=== PATIENT | female | born 2000 | race Caucasian/White ===

== ENCOUNTER 2021-10-12 16:12 | Emergency (ER) | payer OTHER, SELFPAY ==
[2021-10-12 16:24] VITALS: BP 142/70; PULSE 107; RESP 19; TEMP 36.4; O2SAT 100
--- NOTE | 2021-10-12 17:28 | ECG_ITS ---
Measurements Intervals [place] Rate: 88 P: -28 [place]: 146 QRS: 43 QRSD: 97 T: -4 QT: 362 QTc: 438 Interpretive Statements SINUS RHYTHM POSSIBLE RIGHT VENTRICULAR CONDUCTION DELAY [RSR (QR) IN V1/V2] NONSPECIFIC T-WAVE ABNORMALITY ABNORMAL ECG NO PREVIOUS ECG AVAILABLE FOR COMPARISON Electronically Signed On 10-13-2021 9:22:42 CDT by Narendra Lyon M.D.
--- NOTE | 2021-10-12 17:29 | ED.GENADULT ---
HPI - General Adult General Chief complaint: Anxiety Stated complaint: anxiety Time Seen by Provider: 10/12/21 17:17 History of Present Illness HPI narrative: 20-year-old female presents the emergency room with complaints of anxiety. Patient states that she was vaping excessively about an hour and a half prior to arrival. Reports after she vapes, she ran up the stairs. This caused her to have a cramp in her right side, which led her to believe that she was having a heart attack. Patient currently is complaining of chest discomfort and shortness of breath. Patient states this is similar to her past anxiety attacks. Related Data Home Medications Medication Instructions Recorded Confirmed norethindrone-e.estradiol-iron tablet 07/29/19 [08/16 (28)] Allergies Allergy/AdvReac Type Severity Reaction Status Date / Time No Known Allergies Allergy Verified 10/12/21 17:18 Review of Systems Review of Systems: CONSTITUTIONAL: Denies fever, chills, or sweats. EYES: Denies visual changes, redness, or discharge. ENT: Denies rhinorrhea, congestion, sore throat, or otalgia. CARDIOVASCULAR: Reports chest discomfort and palpitations. RESPIRATORY: Reports shortness of breath. GASTROINTESTINAL: Denies abdominal pain, nausea, vomiting, or diarrhea. GENITOURINARY: Denies dysuria or hematuria. SKIN: Denies rash or itching. MUSCULOSKELETAL: Denies back pain, joint pain, or myalgia. NEUROLOGIC: Denies headache, numbness, dizziness, or weakness. PSYCHIATRIC: Reports anxiety. [facility] Past Medical History Medical History (Updated 10/12/21 @ 18:35 by Narendra Kelley, MANUELA) Anxiety Exam Narrative: GENERAL: Well-appearing, well-nourished, and in no acute distress. HEAD: Normocephalic, atraumatic. EYES: PERRLA and EOMI. ENT: Nares clear, no rhinorrhea or epistaxis. Mucous membranes moist. NECK: Supple. No adenopathy or masses. No carotid bruits or JVD CHEST: Clear to auscultation. No respiratory distress. No wheezes rales or rhonchi HEART: Regular rate and rhythm. No murmur heard. Normal peripheral pulses. ABDOMEN: Soft, nontender, nondistended, normal active bowel sounds. EXTREMITIES: Normal range of motion. No edema. SKIN: Warm, dry, no rash. NEURO: No focal deficits. Alert and oriented x3. PSYCH: Anxiety. Course Course Emergency Course: 1829: Patient reports a significant reduction in her anxiety level. Vital Signs Vital signs: Vital Signs Temperature 36.4 C 10/12/21 16:24 Pulse Rate 107 H 10/12/21 16:24 Respiratory Rate 19 10/12/21 16:24 Blood Pressure 142/70 H 10/12/21 16:24 Pulse Oximetry 100 10/12/21 16:24 Temperature 36.4 C 10/12/21 16:24 Pulse Rate 107 H 10/12/21 16:24 Respiratory Rate 19 10/12/21 16:24 Blood Pressure 142/70 H 10/12/21 16:24 Pulse Oximetry 100 10/12/21 16:24 Medical Decision Making MDM Narrative Medical decision making narrative: EKG normal. Patient responded well to the hydroxyzine. Patient symptoms likely result of panic attack. Medical Records Medical records reviewed: Yes I reviewed the external patient's medical records. Vital Signs Vital Signs: Vital Signs Temperature 36.4 C 10/12/21 16:24 Pulse Rate 107 H 10/12/21 16:24 Respiratory Rate 19 10/12/21 16:24 Blood Pressure 142/70 H 10/12/21 16:24 Pulse Oximetry 100 10/12/21 16:24 Temperature 36.4 C 10/12/21 16:24 Pulse Rate 107 H 10/12/21 16:24 Respiratory Rate 19 10/12/21 16:24 Blood Pressure 142/70 H 10/12/21 16:24 Pulse Oximetry 100 10/12/21 16:24 ECG Data EKG #1: Prior ECG tracings: not available for review EKG Interpretation: normal rate, sinus rhythm, no ST changes, normal QT, NL axis and no acute changes Discharge Plan Discharge Clinical Impression: Anxiety Patient Disposition: Home, Self-Care Condition: Stable Instructions: Antibiotic Form Prescriptions: New hydroxyzine HCl 25 mg tablet 25 mg PO TID PRN (Ana
[2021-10-12] MEDS: hydrOXYzine HCL 25 MG TABLET PO (17:34)
== END 2021-10-12 18:50 | disposition home or self-care (01) ==
PROVIDERS: Emergency Provider Nurse Practitioner Family
DX: F41.9 Anxiety disorder, unspecified (principal); R94.31 Abnormal electrocardiogram [ECG] [EKG]
CPT/HCPCS: 93005; 99283; A9270

== ENCOUNTER 2023-07-15 15:43 | Emergency (ER) | payer OTHER, SELFPAY ==
[2023-07-15 15:53] VITALS: BP 122/70; PULSE 77; RESP 16; TEMP 36.9; O2SAT 99
--- NOTE | 2023-07-15 16:48 | ED.URI ---
HPI - URI/Sore Throat General Chief Complaint: Upper Respiratory Infection Stated Complaint: Sore Throat History of Present Illness HPI Narrative: 22-year-old female presented for complaint of sore throat and nasal congestion. Onset yesterday. Denies associated headache, nausea, vomiting, diarrhea, fevers or chills. Not taking anything for symptoms. She rates her pain 3/10. Endorses a history of chronic enlarged tonsils. Related Data Home Medications Medication Instructions Recorded Confirmed citalopram 20 mg tablet mg 07/15/23 hydroxyzine HCl 25 mg tablet 25 mg PO TID anxiety 07/15/23 07/15/23 norethindrone 1 mg-ethinyl tablet 07/15/23 estradiol 20 mcg (21)-iron 75 mg (7) tablet (08/16 (28)) sumatriptan succinate 25 mg tablet mg PO 07/15/23 07/15/23 Allergies Allergy/AdvReac Type Severity Reaction Status Date / Time nickel Allergy Rash Verified 07/15/23 15:58 Review of Systems Review of Systems: CONSTITUTIONAL: Denies body aches, fever, chills, or sweats. EYES: Denies visual changes, redness, or discharge. ENT: Reports rhinorrhea, congestion, sore throat CARDIOVASCULAR: Denies chest pain, palpitations, or edema. RESPIRATORY: Denies dyspnea. GASTROINTESTINAL: Denies abdominal pain, nausea, vomiting, or diarrhea. SKIN: Denies rash, itching, or wounds. MUSCULOSKELETAL: Denies back pain, joint pain, or myalgia. NEUROLOGIC: Denies headache PMFSH Past Medical History Medical History Anxiety Exam Narrative: GENERAL: well-appearing, no acute distress. EYES: conjunctivae clear ENT: Mucous membranes moist. TM pearly bower with normal light reflex bilaterally; no tragal tenderness. Oropharynx not erythematous without lesions. Tonsils enlarged 3+ (chronic) and without exudate. No drooling, no hoarseness, no trismus, uvula midline. No tripod positioning, hot potato voice, or soft palate swelling. NECK: Supple. No lymphadenopathy CHEST: Clear to auscultation, breath sounds equal. No respiratory distress, speaks in full sentences. HEART: Regular rate and rhythm. No murmur heard. SKIN: Warm, dry, no rash. NEURO: Alert and oriented x3. Course Course Emergency Course: Patient is aware of diagnosis, understands and agrees to treatment plan. Anticipatory guidance given. Patient agrees to follow-up as directed and is aware of reasons to seek care at the emergency department. Portions of this record may have been created with voice recognition software Level of Care: Express Care Visit Vital Signs Vital signs: Vital Signs Temperature 98.5 F 07/15/23 15:53 Pulse Rate 77 07/15/23 15:53 Respiratory Rate 16 07/15/23 15:53 Blood Pressure 122/70 07/15/23 15:53 Pulse Oximetry 99 07/15/23 15:53 Oxygen Delivery Room Air 07/15/23 15:53 Temperature 98.5 F 07/15/23 15:53 Pulse Rate 77 07/15/23 15:53 Respiratory Rate 16 07/15/23 15:53 Blood Pressure 122/70 07/15/23 15:53 Pulse Oximetry 99 07/15/23 15:53 Oxygen Delivery Room Air 07/15/23 15:53 MDM - URI/Sore Throat MDM Narrative Medical decision making narrative: NEG strep result reviewed with pt. Reports chronically enlarged tonsils. Advise supportive treatments. Patient is appropriate for outpatient treatment and follow-up. Differential Diagnosis Differential diagnosis: Likely upper respiratory infection, viral infection and pharyngitis Lab Data Labs: Strep Screen Presumptive Negative *(Reference Range: Negative)* Discharge Plan Discharge Clinical Impression: Upper respiratory infection Patient Disposition: Home, Self-Care Condition: Stable Instructions: Antibiotic Form, Tonsillitis (ED) Additional Instructions: Rapid strep swab was negative today You will be notified in a few days if the culture comes back positive for strep, and appropriate anti
== END 2023-07-15 16:57 | disposition home or self-care (01) ==
PROVIDERS: Emergency Provider Nurse Practitioner Family
DX: J06.9 Acute upper respiratory infection, unspecified (principal); Z79.899 Other long term (current) drug therapy
CPT/HCPCS: 87081; 87880; 99213; G0463

== ENCOUNTER 2024-03-17 09:33 | Emergency (ER) | payer OTHER, SELFPAY ==
[2024-03-17 09:42] VITALS: BP 125/66; PULSE 66; RESP 19; TEMP 36.8; O2SAT 100
--- NOTE | 2024-03-17 10:11 | ED.EAR ---
HPI - Ear Problem General Chief complaint: Ear Stated complaint: Ears Irritation Time Seen by Provider: 03/17/24 10:12 Source: patient, RN notes reviewed and old records reviewed Mode of arrival: ambulatory Limitations: no limitations History of Present Illness HPI Narrative: Patient presents with complaints of bilateral ear stuffiness, left worse than right. She reports that she has had a stuffy nose for couple of days, but the sensation of fullness in her ears did not begin until today. She denies any fever, chills, sweats. She denies any sore throat. She feels as though her hearing is decreased secondary to the stuffiness in them both. Related Data Home Medications Medication Instructions Recorded Confirmed hydroxyzine HCl 25 mg tablet 25 mg PO TID anxiety 07/15/23 03/17/24 ergocalciferol (vitamin D2) 1,250 1,250 mcg PO DIRECTED 03/17/24 03/17/24 mcg (50,000 unit) capsule norethindrone 1 mg-ethinyl 1 tablet PO DAILY 03/17/24 03/17/24 estradiol 20 mcg (21)-iron 75 mg (7) tablet (Aurovela Fe 1-20 (28)) riboflavin (vitamin B2) 100 mg 100 mg PO DAILY 03/17/24 03/17/24 tablet (Vitamin B-2) sertraline 100 mg tablet 100 mg PO DAILY 03/17/24 03/17/24 Allergies Allergy/AdvReac Type Severity Reaction Status Date / Time nickel Allergy Rash Verified 03/17/24 09:38 Review of Systems Review of Systems: All systems reviewed & are unremarkable except as noted in HPI and below Constitutional: Constitutional: Reports no additional constitutional complaints ENT: Reports system reviewed and no additional complaints, except as documented, Reports otalgia and Reports nasal congestion Cardiovascular: Cardiovascular: Reports no additional cardiovascular complaints Respiratory: Respiratory: Reports no additional respiratory complaints Gastrointestinal: Gastrointestinal: Reports no additional gastrointestinal complaints PMFSH Past Medical History Medical History Anxiety Comments At the time of my signature, I reviewed and agree with the nursing past medical, surgical, social, and family history. There is no relevant family history pertinent to the patient complaint. Exam Const: General: cooperative, no acute distress, alert and awake Orientation/consciousness: oriented to person, oriented to place and oriented to time HENMT: Head: normal to inspection Ears: TM abnormal dull bilateral, wth effusion serous and with fluid behind the TM bilateral Resp: Effort & Inspection: normal respiratory effort and able to speak in complete sentences Auscultation: clear to auscultation bilaterally, no crackles, no rales, no rhonchi and no wheezes Cardio: Palpation: normal PMI Rate: regular rate Rhythm: regular rhythm Heart sounds: S1 normal heart sound present and S2 normal heart sound present Neuro: General: oriented to person, oriented to place and oriented to time Cranial nerves: Yes CN's II-XII intact bilaterally Psych: Appearance: grossly normal Thought process: Normal thought process present Insight: Good insight present (Psych) Judgement: Good judgement present (Psych) Course Course Level of Care: Express Care Visit Vital Signs Vital signs: Vital Signs Temperature 98.2 F 03/17/24 09:42 Pulse Rate 66 03/17/24 09:42 Respiratory Rate 19 03/17/24 09:42 Blood Pressure 125/66 03/17/24 09:42 Pulse Oximetry 100 03/17/24 09:42 Oxygen Delivery Room Air 03/17/24 09:42 Temperature 98.2 F 03/17/24 09:42 Pulse Rate 66 03/17/24 09:42 Respiratory Rate 19 03/17/24 09:42 Blood Pressure 125/66 03/17/24 09:42 Pulse Oximetry 100 03/17/24 09:42 Oxygen Delivery Room Air 03/17/24 09:42 Reviewed Medical Decision Making MDM Narrative Medical decision making narrative: Patient with bilateral effusion, left worse than right. Will treat with short course of p.o. steroids, advised to start Flonase. Patient in agreement plan.
== END 2024-03-17 10:30 | disposition home or self-care (01) ==
PROVIDERS: Emergency Provider Nurse Practitioner Family
DX: H65.03 Acute serous otitis media, bilateral (principal); F41.9 Anxiety disorder, unspecified
CPT/HCPCS: 99213; G0463

== ENCOUNTER 2024-05-19 16:07 | Emergency (ER) | payer OTHER, SELFPAY ==
[2024-05-19 16:26] VITALS: BP 115/67; PULSE 82; RESP 16; TEMP 36.6; O2SAT 99
--- NOTE | 2024-05-19 16:51 | ED.URI ---
HPI - URI/Sore Throat General Chief Complaint: Upper Respiratory Infection Stated Complaint: sore throat Time Seen by Provider: 05/19/24 16:51 Source: patient Mode of arrival: ambulatory Limitations: no limitations History of Present Illness HPI Narrative: 23-year-old female presents with complaint of sore throat, postnasal drainage. Patient states she was outside a lot over the weekend and thinks it may be allergies but wanted to be strep for strep throat. Reports history of recurrent strep. Denies fever. No body aches, chills or headache. Patient taking Claritin daily. All systems reviewed and negative except as noted above. Related Data Home Medications Medication Instructions Recorded Confirmed hydroxyzine HCl 25 mg tablet 25 mg PO TID anxiety 07/15/23 05/19/24 ergocalciferol (vitamin D2) 1,250 1,250 mcg PO DIRECTED 03/17/24 05/19/24 mcg (50,000 unit) capsule norethindrone 1 mg-ethinyl 1 tablet PO DAILY 03/17/24 05/19/24 estradiol 20 mcg (21)-iron 75 mg (7) tablet (Aurovela Fe 1-20 (28)) riboflavin (vitamin B2) 100 mg 100 mg PO DAILY 03/17/24 05/19/24 tablet (Vitamin B-2) sertraline 100 mg tablet 100 mg PO DAILY 03/17/24 05/19/24 Allergies Allergy/AdvReac Type Severity Reaction Status Date / Time nickel Allergy Rash Verified 05/19/24 16:11 Review of Systems Review of Systems: CONSTITUTIONAL: Denies fever, chills, or sweats. EYES: Denies visual changes, redness, or discharge. ENT: Denies rhinorrhea, congestion. Reports sore throat. Denies otalgia. CARDIOVASCULAR: Denies chest pain, palpitations, or edema. RESPIRATORY: Denies cough or dyspnea. GASTROINTESTINAL: Denies abdominal pain, nausea, vomiting, or diarrhea. GENITOURINARY: Denies dysuria or hematuria. SKIN: Denies rash or itching. MUSCULOSKELETAL: Denies back pain, joint pain, or myalgia. NEUROLOGIC: Denies headache, numbness, or weakness. PSYCHIATRIC: Denies anxiety or depression. All other systems reviewed are negative, except as documented in HPI. [facility] Past Medical History Medical History (Reviewed 03/17/24 @ 10:12 by TRAVON Bassett Anxiety Comments At time of signature, agree with nursing past medical, surgical, social and family history. There is no relevant family history pertinent to the presenting complaint. Exam Narrative: GENERAL: This is a well-nourished, well-developed patient, in no apparent distress. HEAD: normocephalic, atraumatic. EYES: PERRL. Sclera clear/white. Vision is grossly intact. EARS: External ears normal, auditory canals clear and without drainage, TMs normal without perforation. Hearing grossly intact. NOSE: External nose normal with no obvious nasal discharge, nares without redness, no rhinorrhea. THROAT: Mucous membranes moist, tonsils 2+ Bilaterally without erythema, exudates. Patient reports her tonsils are large at baseline. clear postnasal drainage noted. NECK: Neck supple, non-tender without lymphadenopathy, masses or thyromegaly. CARDIOVASCULAR: Regular rate and rhythm without murmurs, gallops, or rubs. RESPIRATORY: Clear to auscultation. Breath sounds equal bilaterally. No wheezes, rales, or rhonchi. SKIN: warm, Dry, intact with no suspicious lesions or rash, good texture and turgor. NEURO: awake, alert, and oriented to person, place and time. There were no obvious focal neurologic abnormalities. EXTREMITIES: No joint tenderness, effusion, or edema noted. Course Course Level of Care: Express Care Visit Vital Signs Vital signs: Vital Signs Temperature 36.6 C 05/19/24 16:26 Pulse Rate 82 05/19/24 16:26 Respiratory Rate 16 05/19/24 16:26 Blood Pressure 115/67 05/19/24 16:26 Pulse Oximetry 99 05/19/24 16:26 Oxygen Delivery Room Air 05/19/24 16:26 Temperature 36.6 C 05/19/24 16:26 Pulse Rate 82 05/19/24 16:26 Respiratory Rate 16 05/19/24 16:26 Blood Pressure 115/67 05/19/24 16:26 Pulse Oximetry 99 05/19/24 16:26 Oxygen
[2024-05-19 17:38] LABS: EDSTREPNEGPOS1 Negative (Negative)
== END 2024-05-19 16:58 | disposition home or self-care (01) ==
PROVIDERS: Emergency Provider Nurse Practitioner Family
DX: J02.9 Acute pharyngitis, unspecified (principal); R09.82 Postnasal drip; Z79.899 Other long term (current) drug therapy
CPT/HCPCS: 87081; 87880; 99213; G0463

== ENCOUNTER 2024-05-26 14:26 | Emergency (ER) | payer OTHER, SELFPAY ==
--- NOTE | 2024-05-26 14:32 | ED_ITS ---
HPI - URI/Sore Throat General Chief Complaint: Upper Respiratory Infection Stated Complaint: Sinus/Headache/Nausea Time Seen by Provider: 05/26/24 14:35 Source: patient, RN notes reviewed and old records reviewed Mode of arrival: ambulatory Limitations: no limitations History of Present Illness HPI Narrative: 23-year-old female with a 10 day history of sinus congestion, headaches. Reports [id number] products. Related Data Home Medications Medication Instructions Recorded Confirmed hydroxyzine HCl 25 mg tablet 25 mg PO TID anxiety 07/15/23 05/26/24 ergocalciferol (vitamin D2) 1,250 1,250 mcg PO DIRECTED 03/17/24 05/26/24 mcg (50,000 unit) capsule norethindrone 1 mg-ethinyl 1 tablet PO DAILY 03/17/24 05/26/24 estradiol 20 mcg (21)-iron 75 mg (7) tablet (Aurovela Fe 1-20 (28)) riboflavin (vitamin B2) 100 mg 100 mg PO DAILY 03/17/24 05/26/24 tablet (Vitamin B-2) sertraline 100 mg tablet 100 mg PO DAILY 03/17/24 05/26/24 phentermine 37.5 mg tablet 37.5 mg PO DAILY 05/26/24 05/26/24 Allergies Allergy/AdvReac Type Severity Reaction Status Date / Time nickel Allergy Rash Verified 05/26/24 14:27 Review of Systems Review of Systems: All systems reviewed & are unremarkable except as noted in HPI and below Constitutional: Constitutional: Reports no additional constitutional complaints ENT: Reports as per HPI and Reports nasal congestion Cardiovascular: Cardiovascular: Reports no additional cardiovascular complaints, Denies chest pain and Denies dyspnea Respiratory: Respiratory: Reports no additional respiratory complaints, Denies chest congestion, Denies cough and Denies dyspnea Gastrointestinal: Gastrointestinal: Reports no additional gastrointestinal complaints, Denies abdominal pain, Denies nausea and Denies vomiting Musculoskeletal: Musculoskeletal: Reports no additional musculoskeletal complaints Integumentary/Breasts: Skin/Breast: Reports system reviewed and no additional complaints, except as docu PMFSH Past Medical History Medical History Anxiety Comments At the time of my signature, I reviewed and agree with the nursing past medical, surgical, social, and family history. There is no relevant family history pertinent to the patient complaint. Exam Const: General: cooperative, healthy appearing, comfortable, no acute distress, well developed, alert and well nourished Nutritional Appearance: well nourished Orientation/consciousness: patient oriented x3 Limitations: no limitations HENMT: Head: normal to inspection Ears: hearing grossly normal bilaterally, external ears normal, TM's normal bilaterally, EAC's normal, mastoids normal and no periauricular adenopathy Face/Nose/Sinus: Normal external nose present, No nasal discharge present, normal facial exam, face symmetric and sinus tenderness Face and sinus: normal facial exam and face symmetric Mouth: Yes Normal oral and palatal mucosa present, Yes lip normal and Yes tongue normal Throat: posterior oropharynx normal, uvula midline and no uvular edema Eyes: General: appearance normal, both eyes and all related structures Ali gnment and Position: alignment normal Periorbital: periorbital findings normal Neck: Neck: normal visual inspection, full ROM, no lymphadenopathy and no meningeal signs Chest: Chest palpation & inspection: normal inspection of the chest Resp: Effort & Inspection: normal respiratory effort and able to speak in complete sentences Auscultation: clear to auscultation bilaterally, no crackles, no rales, no rhonchi and no wheezes Cardio: Rate: regular rate Skin: General skin exam: normal color and no rashes or lesions noted Lesions: no lesions Rashes: no rashes Wounds: no wounds Neuro: General: patient oriented x3, gait normal, tone normal, moves all extremities and no meningeal signs Cognition (Neuro): normal cognition Speech: normal speech Gait exam (Neuro): Normal gait present Extrem: General: normal to inspection, full ROM, capillary refill normal and normal gait Psych: Appearance: grossly normal and well kempt Mental Status: mental status grossly normal Speech and movement: Normal speech and movement present and Clear speech present Affect: normal affect Attitude: cooperative Course Course Level of Care: Express Care Visit Vital Signs Vital signs: Vital Signs Temperature 97.9 F 05/26/24 14:35 Pulse Rate 84 05/26/24 14:35 Respiratory Rate 18 05/26/24 14:35 Blood Pressure 128/70 05/26/24 14:35 Pulse Oximetry 99 05/26/24 14:35 Oxygen Delivery Room Air 05/26/24 14:35 Temperature 97.9 F 10/30/24 14:35 Pulse Rate 84 05/26/24 14:35 Respiratory Rate 18 05/26/24 14:35 Blood Pressure 128/70 05/26/24 14:35 Pulse Oximetry 99 05/26/24 14:35 Oxygen Delivery Room Air 05/26/24 14:35 Reviewed MDM - URI/Sore Throat MDM Narrative Medical decision making narrative: Patient sitting comfortably in exam room. Nontoxic, vitals stable. Patient presents with 10 day history of sinus congestion pressure. No acute findings other than sinus tenderness noted exam. Patient appropriate for outpatient treatment and follow-up Discharge instructions reviewed with patient, as well as provided in writing per nursing staff. The instructions also include specific and strict return/GO TO THE ER as well as f/u information. All questions have been answered, and the patient deny any further questions with discharge and discharge plan. Some parts of this dictation were generated by voice recognition software and may contain typographical and/or grammatical inaccuracies. Differential Diagnosis Differential diagnosis: Likely upper respiratory infection, otitis media, sinusitis, viral infection, bronchitis and pharyngitis Critical Care Time Critical Care Time Critical Care Time: No Discharge Plan Discharge Clinical Impression: Sinusitis Patient Disposition: Home, Self-Care Condition: Stable Instructions: Antibiotic Form, Rhinosinusitis (ED) Additional Instructions: -Alternate Tylenol and Motrin per package directions for fever or pain. -Antihistamine medication such as Benadryl at night and Zyrtec/Claritin/Miya during the day can help improve symptoms. -doing daily nasal irrigations can help relieve pressure your sinuses. Things like a Neti pot -Use Flonase twice a day for 5 days then daily to help reduce the inflammation and dry up your sinuses. -You can also use Sudafed or Mucinex. Be sure to drink plenty of water with these medications at least 8 ounces with every dose and it is important to drink 8 to 10 glasses of water per day. Water is a natural decongestant -Eat and drink things that are easy to swallow, like tea or soup, or popsicles. -Oral rinses such as: Salt water gargles and/or may use topical anesthetic (eg. Chloraseptic spray) or lozenges to relieve dryness or throat pain). -Frequent hand washing or hand touch up carver is one of the best ways to prevent spread of infection. -Using a vaporizer or humidifier at night will also help thin secretions and help with coughing up phlegm. -Follow up with primary care provider in 3-5 days if condition is not improving - For new or worsening symptoms go directly to the nearest ER Patient Language: Azeri Prescriptions: New methylprednisolone [Methylpred DP] 4 mg tablets,dose pack See Rx Instructions PO .COMPLEX Qty: 21 0RF Rx Instructions: orally per package directions amoxicillin-pot clavulanate 875-125 mg tablet 1 tablet PO Q12H Qty: 14 0RF No Action hydroxyzine HCl 25 mg tablet 25 mg PO TID riboflavin (vitamin B2) [Vitamin B-2] 100 mg tablet 100 mg PO DAILY sertraline 100 mg tablet 100 mg PO DAILY norethindrone-e.estradiol-iron [Aurovela Fe 1-20 (28)] 1 mg-20 mcg (21)/75 mg (7) tablet 1 tablet PO DAILY ergocalciferol (vitamin D2) 1,250 mcg (50,000 unit) capsule 1,250 mcg PO DIRECTED phentermine 37.5 mg tablet 37.5 mg PO DAILY Follow-up/Referrals: PHYSICIAN,LUMP MACHINE OPERATOR [Primary Care Provider] - Time of Disposition: 14:48
[2024-05-26 14:35] VITALS: BP 128/70; PULSE 84; RESP 18; TEMP 36.6; O2SAT 99
== END 2024-05-26 14:53 | disposition home or self-care (01) ==
PROVIDERS: Emergency Provider Nurse Practitioner
DX: J32.9 Chronic sinusitis, unspecified (principal); F41.9 Anxiety disorder, unspecified
CPT/HCPCS: 99213; G0463

== ENCOUNTER 2024-11-04 08:12 | Emergency (ER) | payer OTHER, SELFPAY ==
--- NOTE | 2024-11-04 08:13 | ED_ITS ---
HPI - URI/Sore Throat General Chief Complaint: Upper Respiratory Infection Stated Complaint: cold symptoms spots on roof of mouth Time Seen by Provider: 11/04/24 08:13 Source: patient Mode of arrival: ambulatory Limitations: no limitations History of Present Illness HPI Narrative: Cristy is a 24-year-old female patient presenting to the clinic today with complaints of cold symptoms and red rash to the roof of her mouth. She reports nasal congestion, dry cough, and head congestion x2 days. No known fevers or chills. Noticed a red rash on the roof of her mouth last night and this brought her to the clinic today Related Data Home Medications ?Medication ?Instructions ?Recorded ?Confirmed ?Last Taken ?Type norethindrone 1 mg-ethinyl 1 tablet PO DAILY 03/17/24 11/04/24 Unknown History estradiol 20 mcg (21)-iron 75 mg (7) tablet (Aurovela Fe 1-20 (28)) riboflavin (vitamin B2) 100 mg 100 mg PO DAILY 03/17/24 11/04/24 Unknown History tablet (Vitamin B-2) sertraline 100 mg tablet 100 mg PO DAILY 03/17/24 11/04/24 Unknown History galcanezumab-gnlm 120 mg/mL 120 mg subcut MONTHLY 11/04/24 11/04/24 Unknown History subcutaneous pen injector (Emgality Pen) Allergies Allergy/AdvReac Type Severity Reaction Status Date / Time nickel Allergy Rash Verified 11/04/24 08:28 Review of Systems Review of Systems: Pertinent positives per HPI. Patient denies any fever, chills, rash, headache, visual changes, dizziness,shortness of breath, chest pain, palpitations, nausea, vomiting, diarrhea, constipation, abdominal pain, or any urinary issues. [facility] Past Medical History Medical History Anxiety Comments At the time of my signature, I reviewed and agree with the nursing past medical, surgical, social, and family history. There is no relevant family history pertinent to the patient complaint. Exam Narrative: General: Well-developed, well nourished, in no apparent distress Head: Normocephalic, atraumatic Eyes: Pupils equally round and reactive to light bilaterally, EOM intact, sclera and conjunctive clear, no discharge, lids normal Ears: TMs intact and congested, ear canals clear, no drainage, grossly hearing normal. Nose: Nares patent, clear nasal discharge, moderate inflammation, no sinus tenderness. Mouth: Oral pharynx red without masses, good dentition, MMM. Red spotted/ blotchy rash to the roof of the mouth Neck: Supple, trachea midline, no enlargement of anterior or posterior cervical nodes, no thyroid masses or goiter palpable. Cardio: Regular rate and rhythm, s1 and s2 normal, no murmur appreciated. Resp: Clear to auscultation bilaterally, no rhonchi, rales, wheezing or rubs Course Course Emergency Course: Portions of this record may have been created with voice recognition software. Level of Care: Express Care Visit Vital Signs Vital signs: Vital Signs Temperature 36.8 C 11/04/24 08:22 Pulse Rate 81 11/04/24 08:22 Respiratory Rate 16 11/04/24 08:22 Blood Pressure 125/58 L 11/04/24 08:22 Pulse Oximetry 100 11/04/24 08:22 Oxygen Delivery Room Air 11/04/24 08:22 Temperature 36.8 C 11/04/24 08:22 Pulse Rate 81 11/04/24 08:22 Respiratory Rate 16 11/04/24 08:22 Blood Pressure 125/58 L 11/04/24 08:22 Pulse Oximetry 100 11/04/24 08:22 Oxygen Delivery Room Air 11/04/24 08:22 Vital signs reviewed MDM - URI/Sore Throat MDM Narrative Medical decision making narrative: At the time of visit patient is resting comfortably on the exam table. Patient appears to be nontoxic. Labs: Strep test was obtained and negative in the clinic today. We will send strep. Plan: I suspect patient has URI. Prescription for prednisone was sent to the pharmacy. Supportive measures were discussed with the patient and they voiced understanding discharge instructions and agrees to treatment plan. Return precautions reviewed Differential Diagnosis Differential diagnosis: Likely upper respiratory infection, otitis media, sinusitis, viral infection, bronchitis, influenza, pharyngitis and other (COVID) Lab Data Labs: Lab Results 11/04/24 Range/Units 08:37 POC Grp A Strep Screen Negative (Negative) Discharge Plan Discharge Clinical Impression: Upper respiratory infection Qualifiers: URI type: unspecified URI Qualified Code(s): J06.9 - Acute upper respiratory infection, unspecified Patient Disposition: Home Condition: Stable Instructions: Antibiotic Form, Cold Symptoms (ED) Additional Instructions: Strep test was negative in the clinic today. We will send strep for culture and if this comes back positive we will contact him place you on antibiotics at that time. Take prescription medications only as prescribed-prednisone Increase fluids and stay well hydrated Tylenol/motrin for pain/fever Flonase and OTC antihistamines as directed Vicks vapor rub to open sinuses Sinus rinses for congestion Cepacol spray, cough drops, throat lozenges, warm tea with honey/lemon, gargle salt water to soothe throat BRAT diet for diarrhea Clear liquids x 24 hours then advance as tolerated for nausea/vomiting Go to the ED if you develop a worsening in your condition- high fever not controlled by Tylenol or Motrin, dehydration, weakness, lethargy, shortness of breath, or chest pain. Follow up with your PCP in 3-5 days if symptoms persist. Patient Language: Nepalese Prescriptions: New prednisone 20 mg tablet 40 mg PO DAILY 5 Days Qty: 10 0RF No Action Emgality Pen 120 mg/mL pen injector 120 mg SUBCUT MONTHLY riboflavin (vitamin B2) [Vitamin B-2] 100 mg tablet 100 mg PO DAILY sertraline 100 mg tablet 100 mg PO DAILY norethindrone-e.estradiol-iron [Aurovela Fe 1-20 (28)] 1 mg-20 mcg (21)/75 mg (7) tablet 1 tablet PO DAILY Follow-up/Referrals: Brock,Lizzy Mosqueda, [employer] [Primary Care Provider] - Stand Alone Forms: Work/School Release IP Time of Disposition: 08:37 Quality NIHSS Nursing Documentation ED NIHSS nursing documentation: reviewed/agree
[2024-11-04 08:22] VITALS: BP 125/58; PULSE 81; RESP 16; TEMP 36.8; O2SAT 100
[2024-11-04 08:39] LABS: EDSTREPNEGPOS1 Negative (Negative)
== END 2024-11-04 08:42 | disposition home or self-care (01) ==
PROVIDERS: Emergency Provider Nurse Practitioner Family; PCP Nurse Practitioner Family
DX: J06.9 Acute upper respiratory infection, unspecified (principal)
CPT/HCPCS: 87081; 87880; 99213; G0463